=== PATIENT | male | born 1960 | race Caucasian/White ===

== ENCOUNTER → 2017-09-18 | Outpatient (CLI) | payer BC ==
--- NOTE | 2017-09-18 23:11 | MR ---
EXAMINATION TYPE: MR elbow RT wo con DATE OF EXAM: 09/18/2017 COMPARISON: NONE HISTORY: Other rupture of muscle, right forearm Standard multiplanar, multisequence MRI departmental protocol Multiplanar, multisequence images of the right elbow were acquired. FINDINGS: Elbow joint spaces are fairly normal. There is no elbow joint effusion. Biceps tendon is in tact. Brachialis tendon is intact. I see no bony destructive process. The collateral ligaments at th e elbow appear intact. There is some fluid in the antecubital fossa. The biceps tendon shows increased signal near its attac hment on the radial tubercle. There appears to be partial retraction. I see no fracture. IMPRESSION: There is edema around the biceps tendon consistent with a significant tear and partial retraction. Mo st of the fibers of the biceps tendon appear retracted from the radial tubercle. There are only a few fibers connecting with the radial tubercle. There is fluid around the biceps tendon
== END | disposition home or self-care (01) ==
LOC: RADMRIMAIN 13:24
PROVIDERS: ATTEND Orthopaedic Surgery
DX: R60.0 Localized edema (principal); M62.13 Other rupture of muscle (nontraumatic), forearm

== ENCOUNTER 2018-05-08 10:04 | Day surgery (SDC) | payer BC ==
[2018-05-06 09:42] VITALS: BMI 25.7
[~2018-05-08 10:04] MED LIST: LACTATED RINGERS 1,000 ML IV SCH
[2018-05-08 10:31] VITALS: RESP 16; TEMP 97.4
[2018-05-08] MEDS ORDERED: LIDOCAINE 1% 20 ML VIAL (10MG/ML) FOR IV START INTRADERMA ONE (10:40)
[2018-05-08] MEDS ORDERED: PROPOFOL 10 MG/ML 20 ML VIAL IV ONE (10:51)
--- NOTE | 2018-05-08 11:24 | P.PCN ---
Date of Procedure: 05/08/18 Procedure(s) Performed: Procedure: Total colonoscopy. Preoperative diagnosis: Screening for neoplasia. Postoperative diagnosis: Exam within normal limits. Preparation: HalfLytely prep. Sedation: Was provided by anesthesia. Brief clinical history: The patient is a 57-year-old male who is scheduled for this evaluation for screening for neoplasia age being his risk factor. He has no family history of colon cancer. There is no history of abdominal complaints , bleeding or anemia. This would be his first colonoscopy. Procedure: With the patient on his left lateral decubitus position and after informed consent and adequate sedation, the perianal area was inspected and it did not show any fissures or fistulas. There were no masses felt on digital rectal examination. The Olympus CFH 190L video colonoscope was then inserted in the rectum in the usual fashion and advanced to the cecum the mucosa appeared healthy. No polyps or tumors were seen or any obvious diverticular disease or other pathology. I retroflexed the endoscope in the rectum before the endoscope was withdrawn. The patient tolerated the procedure well. Plan: The patient was reassured. He will follow up with you as planned and I recommended repeat exam in 10 years.
[2018-05-08 11:49] VITALS: BP 124/83; PULSE 73
== END 2018-05-08 11:56 | disposition home or self-care (01) ==
LOC: ORWHC2ENDO 10:04
DX: Z12.11 Encounter for screening for malignant neoplasm of colon (principal); I10 Essential (primary) hypertension; Z79.1 Long term (current) use of non-steroidal anti-inflammatories (NSAID); Z79.899 Other long term (current) drug therapy
CPT/HCPCS: J2704; G0121; 45378

== ENCOUNTER → 2018-09-10 | Outpatient (CLI) | payer BC | END | disposition home or self-care (01) | LOC: LABWHC1 13:36 | PROVIDERS: ATTEND Urology | DX: R97.20 Elevated prostate specific antigen [PSA] (principal) | CPT/HCPCS: 36415; 84153 ==

== ENCOUNTER → 2019-03-05 | Outpatient (CLI) | payer BC | END | disposition home or self-care (01) | LOC: LABWHC1 12:14 | PROVIDERS: ATTEND Urology | DX: R97.20 Elevated prostate specific antigen [PSA] (principal) | CPT/HCPCS: 36415; 84153 ==

== ENCOUNTER → 2020-02-26 | Outpatient (CLI) | payer BC | END | disposition home or self-care (01) | LOC: LABWHC1 15:03 | PROVIDERS: ATTEND Urology | DX: R97.20 Elevated prostate specific antigen [PSA] (principal) | CPT/HCPCS: 36415; 84153 ==

== ENCOUNTER 2020-12-29 20:29 | Emergency (ER) | payer BC ==
[2020-12-29 22:14] VITALS: BP 127/84; PULSE 90; RESP 18; TEMP 98.7
[2020-12-29] MEDS ORDERED: DEXAMETHASONE SOD PHOSPHATE 10 MG/ML 1 ML VIAL IM STA (23:02)
[2020-12-29] MEDS ORDERED: hydrOXYzine HCL 25 MG TAB PO STA (23:02)
[2020-12-29] MEDS ORDERED: FAMOTIDINE 20 MG TAB PO STA (23:02)
[2020-12-29] MEDS ORDERED: predniSONE 20 MG TAB PO STA (23:02)
--- NOTE | 2020-12-29 23:03 | ED ---
Allergic Reaction HPI - General Chief complaint: Allergic Reaction Stated complaint: Allergic Reaction-Bee Sting Time Seen by Provider: 12/29/20 22:56 Source: patient, RN notes reviewed, old records reviewed Mode of arrival: ambulatory Limitations: no limitations - History of Present Illness Initial Comments: This is a 60-year-old male DF for evaluation. Patient today sustaining bee stings to both hands. One to each. Patient denies shortness of breath and wheezy, no other swelling noted. Patient states he did take Benadryl with symptoms didn't not improving thinks he may actually be worsening. Patient has no other complaints has no significant medical history and takes no other medication. No history of anaphylaxis MD Complaint: allergic reaction, other (Bee sting) -: hour(s) Exposure: insect bite Symptoms: rash, other (Bilateral hand swelling) Severity: mild Treatment Prior to Arrival: benadryl Previous Allergy History: none - Related Data Home Medications Medication Instructions Recorded Confirmed Lisinopril [Prinivil] 10 mg PO DAILY 01/29/15 05/08/18 Previous Rx's Medication Instructions Recorded Ibuprofen [Motrin] 800 mg PO Q8HR PRN #30 tab 01/29/15 Famotidine [Pepcid] 20 mg PO BID #28 tablet 12/29/20 hydrOXYzine HCL [Atarax] 25 mg PO TID PRN #15 tab 12/29/20 predniSONE 50 mg PO DAILY #5 tab 12/29/20 Allergies Allergy/AdvReac Type Severity Reaction Status Date / Time No Known Allergies Allergy Verified 05/06/18 09:18 Review of Systems ROS Statement: Those systems with pertinent positive or pertinent negative responses have been documented in the HPI. ROS Other: All systems not noted in ROS Statement are negative. Past Medical History Past Medical History: Hypertension History of Any Multi-Drug Resistant Organisms: None Reported Past Surgical History: Orthopedic Surgery Additional Past Surgical History / Comment(s): RIGHT KNEE SURGERY -ARTHROSCOPIC Past Anesthesia/Blood Transfusion Reactions: No Reported Reaction Past Psychological History: No Psychological Hx Reported Smoking Status: Never smoker Past Alcohol Use History: Rare Past Drug Use History: None Reported - Past Family History Mother Family Medical History: No Reported History General Exam - General Exam Comments Initial Comments: Bilateral hand edema and swelling General appearance: alert, in no apparent distress Head exam: Present: atraumatic, normocephalic, normal inspection Eye exam: Present: normal appearance, PERRL, EOMI. Absent: scleral icterus, conjunctival injection, periorbital swelling ENT exam: Present: normal exam, mucous membranes moist Neck exam: Present: normal inspection. Absent: tenderness, meningismus, lymphadenopathy Respiratory exam: Present: normal lung sounds bilaterally. Absent: respiratory distress, wheezes, rales, rhonchi, stridor Cardiovascular Exam: Present: regular rate, normal rhythm, normal heart sounds. Absent: systolic murmur, diastolic murmur, rubs, gallop, clicks GI/Abdominal exam: Present: soft, normal bowel sounds. Absent: distended, tenderness, guarding, rebound, rigid Extremities exam: Present: normal inspection, full ROM, normal capillary refill. Absent: tenderness, pedal edema, joint swelling, calf tenderness Back exam: Present: normal inspection Neurological exam: Present: alert, oriented X3, CN II-XII intact Psychiatric exam: Present: normal affect, normal mood Skin exam: Present: warm, dry, intact, normal color. Absent: rash Course Vital Signs 12/29/20 22:12 Temperature 98.7 F Pulse Rate 90 Respiratory 18 Rate Blood Pressure 127/84 O2 Sat by Pulse 97 Oximetry - Reevaluation(s) Reevaluation #1: 12/30/20 Record is reviewed Symptoms are improved here in the ER Patient informed of results and questions are answered Patient is in no distress Medical Decision Making - Medical Decision Making 60 male to ER with hymenopteran envenomation. Bee sting. Patient will be placed on steroids and antihistamines and can be discharged home Disposition Clinical Impression: Allergic reaction to insect sting Disposition: HOME SELF-CARE Condition: Good Instructions (If sedation given, give patient instructions): Insect Bite or Sting (ED) Prescriptions: hydrOXYzine HCL [Atarax] 25 mg PO TID PRN #15 tab PRN Reason: Itching Famotidine [Pepcid] 20 mg PO BID #28 tablet predniSONE 50 mg PO DAILY #5 tab Is patient prescribed a controlled substance at d/c from ED?: No Referrals: Kaye Amaya MD [Primary Care Provider] - 1-2 days
== END 2020-12-29 23:43 | disposition home or self-care (01) ==
LOC: EC 20:29
DX: T63.481A Toxic effect of venom of other arthropod, accidental (unintentional), initial encounter (principal); I10 Essential (primary) hypertension; Z79.899 Other long term (current) drug therapy
CPT/HCPCS: 99282; 96372; J1100; J7512

== ENCOUNTER → 2022-01-03 | Outpatient (CLI) | payer BC | END | disposition home or self-care (01) | LOC: LABWHC1 14:07 | PROVIDERS: ATTEND Internal Medicine | DX: R97.20 Elevated prostate specific antigen [PSA] (principal) | CPT/HCPCS: 36415; 84153 ==

== ENCOUNTER → 2022-02-05 | Outpatient (CLI) | payer BC ==
--- NOTE | 2022-02-06 09:38 | MR ---
EXAMINATION TYPE: MR Prostate wo/w con DATE OF EXAM: 02/05/2022 9:44 AM COMPARISON: None. CLINICAL INDICATION:Male, 61 years old with history of R97.20 elevated psa; TECHNIQUE: Multi-planar, multi-sequence imaging of the pelvis is performed prior to and following the uncomplicated administration of bolus intravenous gadolinium. CONTRAST: 8 Gadavist Interpretive Criteria: PI-RADS v2.1 SERUM PSA: 5.3 on 08/31/2021 4.7 on 03/02/2021 SURGICAL PATHOLOGY: No data available. FINDINGS: Prostatic dimensions: 4.9 cm. Ellipsoid Volume:46.03 (PSA density=0.12 ng/mL/mL) CENTRAL GLAND (Central and Transition Zones/CZ+TZ): Multiple bilateral, heterogenous appearing hypertrophic stromal nodules, without suspicious lesion. ( PI-RADS 2) PERIPHERAL ZONE (PZ): Left posterior peripheral zone mid gland area of mild increased DWI signal with associated low ADC si gnal and low T2 weighted imaging measuring up to 10 x 9 mm. PIRADS 4. Additional band wavelike low T2-weighted signal are seen without evidence of restricted diffusion thr oughout the peripheral zone bilaterally. SEMINAL VESICLES (SV): Slightly asymmetrically decompressed on the right. PERIPROSTATIC TISSUES: Unremarkable. LYMPH NODES: No enlarged pelvic lymph node. REMAINING PELVIS: Bladder wall is within normal limits given distention. No pathologic bowel dilation or mural thickening. Trace free fluid is seen within the pelvis. OSSEOUS STRUCTURES: No suspicious osseous abnormality. IMPRESSION: 1. PIRADS 4 lesion - left peripheral zone mid gland. 2. Moderate BPH, estimated gland volume 57 mL. 3. No suspicious osseous lesion. No lymphadenopathy. No evidence of prostate adenocarcinoma involving the periprostatic tissues.
== END | disposition home or self-care (01) ==
LOC: RADMRIMAIN 08:21
PROVIDERS: ATTEND Urology
DX: R97.20 Elevated prostate specific antigen [PSA] (principal)
CPT/HCPCS: 72197; A9585

== ENCOUNTER → 2022-05-18 | Outpatient (CLI) | payer BC ==
[2022-05-18 22:37] LABS: African American GFR (CKD) 83.5 (60.0-200.0); BUN/Creat Ratio 14.45 Ratio (12.00-20.00); Blood Urea Nitrogen 15.9 mg/dL (9.0-27.0); Calcium 9.7 mg/dL (8.7-10.3); Non-African American GFR(CKD) 72.1 (60.0-200.0); Potassium 3.7 mmol/L (3.5-5.5)
== END | disposition home or self-care (01) ==
LOC: LABPAT 14:47
PROVIDERS: ATTEND Urology
DX: Z01.812 Encounter for preprocedural laboratory examination (principal); R97.20 Elevated prostate specific antigen [PSA]
CPT/HCPCS: 36415; 80048

== ENCOUNTER 2022-05-24 10:44 | Day surgery (SDC) | payer BC ==
[2022-05-22 09:05] VITALS: BMI 25.2
--- NOTE | 2022-05-24 06:46 | P.GSHP ---
History of Present Illness H&P Date: 05/24/22 Chief Complaint: Elevated PSA The patient is a 61-year-old white male with no family history of prostate cancer. He has been followed for an elevated PSA level. His most recent PSA level was 6.60 in March 2022. He underwent a prostate ultrasound with biopsies in April 2016. His prostate volume was 32 mL, and biopsies were negative. MRI has shown a PI-RADS 4 lesion within the left peripheral zone. He now comes for MRI fusion biopsy. - Cardiovascular Cardiovascular: Reports high blood pressure - Genitourinary (Male) Genitourinary: Reports nocturia Past Medical History Past Medical History: GERD/Reflux, Hyperlipidemia, Hypertension Additional Past Medical History / Comment(s): Migraines. PSA levels increasing. History of Any Multi-Drug Resistant Organisms: None Reported Past Surgical History: Orthopedic Surgery Additional Past Surgical History / Comment(s): RIGHT KNEE ARTHROSCOPY, prostate biopsy. Past Anesthesia/Blood Transfusion Reactions: No Reported Reaction, Motion Sickness Past Psychological History: No Psychological Hx Reported Smoking Status: Never smoker Past Alcohol Use History: Rare Additional Past Alcohol Use History / Comment(s): "Very rare alcohol use". Past Drug Use History: None Reported - Past Family History Mother Family Medical History: No Reported History Medications and Allergies Home Medications Medication Instructions Recorded Confirmed Type Aspirin/Acetaminophen/Caffeine 1 each PO DIRECTED PRN 05/22/22 05/22/22 History [Excedrin Migraine Caplet] Lisinopril-Hctz 20-25 mg 1 tab PO QAM 05/22/22 05/22/22 History [Zestoretic 20-25] Allergies Allergy/AdvReac Type Severity Reaction Status Date / Time No Known Allergies Allergy Verified 05/22/22 08:50 Surgical - Exam - General well developed, well nourished, no distress - Respiratory normal respiratory effort - Abdomen Abdomen: soft, non tender, no guarding, no rigid, no rebound Hernia: inguinal - Genitourinary normal penis with no external lesions, testicles non-tender - Rectum Rectum: normal sphincter tone, no masses, other (Prostate moderately enlarged but smooth) - Psychiatric oriented to time, oriented to person, oriented to place, speech is normal, memory intact Assessment and Plan (1) Elevated prostate specific antigen [PSA] Status: Acute Code(s): R97.20 - ELEVATED PROSTATE SPECIFIC ANTIGEN [PSA] SNOMED Code(s): 910857646 Plan: MRI ultrasound fusion transrectal biopsies of the prostate. The procedure has been reviewed in detail with the patient. He is aware of potential risks, which include anesthesia, bleeding, and infection.
[~2022-05-24 10:44] MED LIST changes: +DEXAMETHASONE SOD PHOSPHATE 4 MG/ML 1 ML VIAL IV ONE; +GENTAMICIN 110 MG in SODIUM CHLORIDE 0.9% 100 ML IVPB PRN; +HYDROmorphone 0.5 MG/0.5 ML SYRINGE IVP PRN; +MIDAZOLAM 2 MG/2 ML VIAL IV PRN; +ONDANSETRON 4 MG/2 ML VIAL IVP ONE; +SCOPOLAMINE 1 MG/72 HR PATCH TRANSDERM ONE
[2022-05-24 11:19] VITALS: TEMP 97.6
[2022-05-24] MEDS ORDERED: fentaNYL (PF) 50 MCG/ML 2 ML AMP ONE (12:15)
[2022-05-24] MEDS ORDERED: PROPOFOL 10 MG/ML 20 ML VIAL IV ONE (12:15)
[2022-05-24] MEDS ORDERED: LIDOCAINE 2% INJ 20 MG/ML (2 ML VIAL) ONE (12:15)
[2022-05-24] MEDS ORDERED: MIDAZOLAM 2 MG/2 ML VIAL ONE (12:15)
--- NOTE | 2022-05-24 12:52 | P.OP ---
Date of Procedure: 05/24/22 Preoperative Diagnosis: Elevated PSA Postoperative Diagnosis: Same Procedure(s) Performed: MRI/TRUS fusion biopsy of prostate Anesthesia: PRATIK Surgeon: Neal Montelongo Estimated Blood Loss (ml): 0 IV fluids (ml): 300 Pathology: other (Prostate biopsies) Condition: stable Disposition: PACU Indications for Procedure: The patient is a 61-year-old white male with no family history of prostate cancer. He has been followed for an elevated PSA level. His most recent PSA level was 6.60 in March 2022. He underwent a prostate ultrasound with biopsies in April 2016. His prostate volume was 32 mL, and biopsies were negative. MRI has shown a PI-RADS 4 lesion within the left peripheral zone. He now comes for MRI fusion biopsy. Operative Findings: 3 cores are obtained from the target lesion, left medial mid peripheral zone. Biopsies are obtained from 11 additional areas per template. Description of Procedure: The patient was taken to the operating room and placed in the left lateral decub itus position. The LSEO transrectal ultrasound probe was placed intrarectally. It was then placed within the stand of the [employer] MRI/TRUS Fusion for Prostate Biopsy system. The prostate was imaged in both the axial and sagittal planes, revealing a prostate volume of 45 mL. Using the Biopty gun, 3 biopsies were obtained from the target lesion within the left peripheral zone, left mid medial. The remaining 11 biopsies of the peripheral zone were obtained utilizing a standard template. Once the procedure was completed, the ultrasound probe was removed. The patient tolerated the procedure well was taken to the recovery room stable condition.
[2022-05-24 13:05] VITALS: RESP 16
[2022-05-24] MEDS ORDERED: LACTATED RINGERS 1,000 ML IV ONE (14:24)
[2022-05-24 14:41] VITALS: BP 138/88; PULSE 71
== END 2022-05-24 15:31 | disposition home or self-care (01) ==
LOC: OR 10:44
PROVIDERS: ATTEND Urology
DX: R97.20 Elevated prostate specific antigen [PSA] (principal); E78.5 Hyperlipidemia, unspecified; I10 Essential (primary) hypertension; K21.9 Gastro-esophageal reflux disease without esophagitis
CPT/HCPCS: 55700; J2250; J1100; J0690; J2405; J3010; J2704; J2001; 88305; 88344

== ENCOUNTER → 2023-02-08 | Outpatient (CLI) | payer SELFPAY | END | disposition home or self-care (01) | LOC: LABWHC1 10:46 | PROVIDERS: ATTEND Urology | DX: R97.20 Elevated prostate specific antigen [PSA] (principal) | CPT/HCPCS: 36415; 84153; 84154 ==

== ENCOUNTER → 2023-10-10 | Outpatient (CLI) | payer SELFPAY | END | disposition home or self-care (01) | LOC: LABWHC1 16:21 | PROVIDERS: ATTEND Urology | DX: R97.20 Elevated prostate specific antigen [PSA] (principal) | CPT/HCPCS: 36415; 84153 ==

== ENCOUNTER → 2024-05-20 | Outpatient (CLI) | payer BC | END | disposition home or self-care (01) | LOC: LABWHC1 10:06 | PROVIDERS: ATTEND Family Medicine | DX: R97.20 Elevated prostate specific antigen [PSA] (principal) | CPT/HCPCS: 36415; 84153 ==

== ENCOUNTER → 2024-11-24 | Outpatient (CLI) | payer BC | END | disposition home or self-care (01) | LOC: LABWHC1 16:06 | PROVIDERS: ATTEND Urology | DX: R97.20 Elevated prostate specific antigen [PSA] (principal) | CPT/HCPCS: 36415; 84153 ==